=== PATIENT | male | born 1970 | race Caucasian/White ===

== ENCOUNTER 2016-12-10 22:33 | Emergency (ER) | payer SELFPAY ==
[~2016-12-10 22:33] MED LIST: Acetaminophen/Codeine 300-30 MG Tab PO ONE; Ondansetron 4 MG Tab.DIS PO ONE
[2016-12-10] MEDS ORDERED: Ketorolac 30 MG/ML SDV IM ONE (22:47)
[2016-12-10] MEDS ORDERED: Ondansetron 4 MG/2 ML SDV IVPUSH ONE (22:48)
[2016-12-10] MEDS ORDERED: Sodium Chloride 0.9% 1,000 ML IV ONE (22:48)
[2016-12-10] MEDS ORDERED: Sodium Chloride 0.9% 10 ML Syringe FLUSH PRN (22:56)
[2016-12-11] MEDS ORDERED: Sodium Chloride 0.9% 1,000 ML IV ONE (00:01)
[2016-12-11] MEDS ORDERED: Tamsulosin 0.4 MG Cap.ER PO ONE (00:38)
[2016-12-11] MEDS ORDERED: Tamsulosin 0.4 MG Cap.ER ONE (00:38)
--- NOTE | 2016-12-11 01:19 | EDM.PDOC ---
ED HPI GENERAL MEDICAL PROBLEM - General Chief Complaint: Flank Pain Stated Complaint: NAUSEA, LOWER ABD PAIN Time Seen by Provider: 12/10/16 22:50 Source of Information: Reports: Patient History Limitations: Reports: No Limitations - History of Present Illness Onset: Today Onset Date: 12/10/16 Onset Time: 20:30 Duration: Hour(s): (2) Location: Reports: Abdomen, Back, Pelvis (Right flank pain radiating into right testicle.) Quality: Reports: Sharp, Throbbing Severity: Severe (10/10 at first.) Improves with: Reports: None Worsens with: Reports: None Associated Symptoms: Reports: Nausea/Vomiting Right Flank Pain Score (Numeric/FACES): 7 - Related Data Allergies Allergy/AdvReac Type Severity Reaction Status Date / Time No Known Allergies Allergy Verified 12/10/16 22:41 Home Meds: Home Meds NK [No Known Home Meds] 12/10/16 [History] Social & Family History - Family History Family Medical History: Noncontributory - Tobacco Use Smoking Status *Q: Current Every Day Smoker Years of Tobacco use: 30 Packs/Tins Daily: 1 - Caffeine Use Caffeine Use: Reports: Coffee - Recreational Drug Use Recreational Drug Use: Yes Recreational Drug Type: Reports: Marijuana/Hashish Recreational Drug Use Frequency: Not Used In Over 3 Months ED ROS GENERAL - Review of Systems Review Of Systems: See Below Constitutional: Reports: Fever, Chills, Decreased Appetite HEENT: Reports: No Symptoms Respiratory: Reports: No Symptoms Cardiovascular: Reports: No Symptoms Endocrine: Reports: No Symptoms GI/Abdominal: Reports: Abdominal Pain : Reports: Flank Pain Musculoskeletal: Reports: Back Pain Skin: Reports: No Symptoms Neurological: Reports: No Symptoms Psychiatric: Reports: No Symptoms Hematologic/Lymphatic: Reports: No Symptoms Immunologic: Reports: No Symptoms ED EXAM, RENAL/ - Physical Exam Exam: See Below Exam Limited By: No Limitations General Appearance: Alert Eye Exam: Bilateral Eye: EOMI, Normal Fundi, PERRL Ears: Normal External Exam, Normal Canal, Hearing Grossly Normal, Normal TMs Nose: Normal Inspection, Normal Mucosa, No Blood Throat/Mouth: Normal Inspection Head: Atraumatic, Normocephalic Neck: Normal Inspection, Supple, Non-Tender, Full Range of Motion Respiratory/Chest: No Respiratory Distress, Lungs Clear, Normal Breath Sounds, No Accessory Muscle Use, Chest Non-Tender Cardiovascular: Normal Peripheral Pulses, Regular Rate, Rhythm, No Edema, No Gallop, No JVD, No Murmur, No Rub GI/Abdominal: Normal Bowel Sounds, Soft, Non-Tender, No Organomegaly, No Distention, No Abnormal Bruit, No Mass Back Exam: CVA Tenderness (R) Extremities: Normal Inspection, Normal Range of Motion, Non-Tender, Normal Capillary Refill, No Pedal Edema Neurological: Alert, Oriented, CN II-XII Intact, Normal Cognition, Normal Gait, Normal Reflexes, No Motor/Sensory Deficits Psychiatric: Normal Affect, Normal Mood Skin Exam: Warm, Dry, Intact, Normal Color, No Rash Lymphatic: No Adenopathy Course - Vital Signs Text/Narrative:: Uneventful ED course. He got 2 liters of Normal Saline, 30 mg of IV Toradol, 4 mg of IV Zofran and 0.4 mg of Flomax. His labs showed some blood in the Urine and his CT scan of the abdomen and pelvis showed a kidney stone going into the bladder that is 2 mm in diameter. Mild right kidney hydronephrosis but no obstruction. UA showed no infection. He will go home pushing fluids, Tylenol #3 , 1 po q 4 hours and Zofran 4 mg po q 8 hours prn nausea. He will screen his urine and bring the stone in if he finds it. Follow up next week with Dr. Newman to go over kidney stone diagnosis and to determine if urology consultation is needed. Last Recorded V/S: Last Vital Signs Temp 36.5 C 12/10/16 22:41 Pulse 75 12/10/16 22:41 Resp 20 12/10/16 22:41 BP 180/115 H 12/10/16 22:41 Pulse Ox 100 12/10/16 22:41 - Orders/Labs/Meds Orders: Active Orders 24 hr Category Date Time Status Abdomen Pelvis wo Cont [CT] Stat Exams 12/10/16 22:49 Taken Sodium Chloride 0.9% [Saline Flush] Med 12/10/16 22:56 Active 10 ml FLUSH ASDIRECTED PRN Saline Lock Insert [OM.PC] Routine Oth 12/10/16 22:56 Ordered Medication Orders Sodium Chloride (Saline Flush) 10 ml FLUSH ASDIRECTED PRN PRN Reason: Keep Vein Open Last Admin: 12/10/16 22:58 Dose: 10 ml Labs: Laboratory Tests 12/10/16 12/10/16 12/10/16 Range/Units 23:00 23:00 23:45 WBC 9.2 (4.5-12.0) X10-3/uL RBC 4.96 (4.30-5.75) x10(6)uL Hgb 15.9 H (11.5-15.5) g/dL Hct 46.5 (30.0-51.3) % MCV 93.7 (80-96) fL MCH 32.1 (27.7-33.6) pg MCHC 34.3 (32.2-35.4) g/dL RDW 12.5 (11.5-15.5) % Plt Count 329 (125-369) X10(3)uL MPV 7.8 (7.4-10.4) fL Neut % (Auto) 63.8 (46-82) % Lymph % (Auto) 25.3 (13-37) % [place] % (Auto) 8.2 (4-12) % Eos % (Auto) 2 (1.0-5.0) % Baso % (Auto) 1 (0-2) % Neut # (Auto) 5.9 (1.6-8.3) # Lymph # (Auto) 2.3 (0.6-5.0) # [place] # (Auto) 0.8 (0.0-1.3) # Eos # (Auto) 0.2 (0.0-0.8) # Baso # (Auto) 0.0 (0.0-0.2) # Sodium 139 (135-145) mmol/L Potassium 3.5 (3.5-5.3) mmol/L Chloride 107 (100-110) mmol/L Carbon Dioxide 24 (23-29) mmol/L BUN 16 (5-20) mg/dL Creatinine 1.0 (0.6-1.3) mg/dL Est Cr Clr Drug Dosing 99.16 mL/min Estimated GFR (MDRD) > 60 (>60) BUN/Creatinine Ratio 16.0 (9-20) Glucose 159 H (80-116) mg/dL Calcium 8.7 (8.6-10.2) mg/dL Total Bilirubin 0.5 (0.1-1.3) mg/dL AST 24 (5-27) IU/L ALT 27 H (14-26) IU/L Alkaline Phosphatase 66 (56-112) IU/L Total Protein 7.2 (6.0-8.0) g/dL Albumin 4.1 (3.5-5.2) g/dL Globulin 3.1 g/dL Albumin/Globulin Ratio 1.3 Urine Color Yellow (YELLOW) Urine Appearance Clear (CLEAR) Urine pH 6.0 (5.0-6.5) Ur Specific [place] 1.020 (1.010-1.025) Urine Protein Negative (NEGATIVE) mg/dL Urine Glucose (UA) Normal (NEGATIVE) mg/dL Urine Ketones Negative (NEGATIVE) mg/dL Urine Occult Blood Trace (NEGATIVE) Urine Nitrite Negative (NEGATIVE) Urine Bilirubin Negative (NEGATIVE) Urine Urobilinogen Normal (NEGATIVE) mg/dL Ur Leukocyte Esterase Negative (NEGATIVE) Urine RBC 0-5 (0) Urine WBC 0-5 (0) Ur Squamous Epith Cells Rare (NS,R,O) Urine Bacteria Occasional H (NS) Meds: Medications Generic Name Dose Route Start Last Admin Trade Name Freq PRN Reason Stop Dose Admin Sodium Chloride 10 ml 12/10/16 22:56 12/10/16 22:58 Saline Flush FLUSH 10 ml ASDIRECTED PRN Administration Keep Vein Open Discontinued Medications Generic Name Dose Route Start Last Admin Trade Name Freq PRN Reason Stop Dose Admin Sodium Chloride 1,000 mls @ 999 mls/hr 12/10/16 22:48 12/10/16 22:59 Normal Saline IV 12/10/16 23:48 999 mls/hr .BOLUS ONE Administration Sodium Chloride 1,000 mls @ 999 mls/hr 12/11/16 00:01 Normal Saline IV 12/11/16 01:01 .BOLUS ONE Ketorolac Tromethamine 30 mg 12/10/16 22:47 12/10/16 22:55 Toradol IM 12/10/16 22:48 30 mg ONETIME ONE Administration Ondansetron HCl 4 mg 12/10/16 22:48 12/10/16 22:58 Zofran IVPUSH 12/10/16 22:49 4 mg ONETIME ONE Administration Tamsulosin HCl Confirm 12/11/16 00:38 Flomax Administered 12/11/16 00:39 Dose 0.4 mg .ROUTE .STK-MED ONE Tamsulosin HCl 0.4 mg 12/11/16 00:38 12/11/16 00:40 Flomax PO 12/11/16 00:39 0.4 mg ONETIME ONE Administration Departure - Departure Time of Disposition: 01:19 Disposition: Home, Self-Care 01 Condition: Good Clinical Impression: Kidney stone on right side - Discharge Information Referrals: Dung Burrows MD [Primary Care Provider] - - My Orders Last 24 Hours: My Active Orders 12/10/16 22:49 Abdomen Pelvis wo Cont [CT] Stat 12/10/16 22:56 Sodium Chloride 0.9% [Saline Flush] 10 ml FLUSH ASDIRECTED PRN Saline Lock Insert [OM.PC] Routine - Assessment/Plan Last 24 Hours: My Active Orders 12/10/16 22:49 Abdomen Pelvis wo Cont [CT] Stat 12/10/16 22:56 Sodium Chloride 0.9% [Saline Flush] 10 ml FLUSH ASDIRECTED PRN Saline Lock Insert [OM.PC] Routine
== END 2016-12-11 01:25 | disposition home or self-care (01) ==
LOC: FB.ED 22:33
DX: N13.2 Hydronephrosis with renal and ureteral calculous obstruction (principal); F17.210 Nicotine dependence, cigarettes, uncomplicated
CPT/HCPCS: 36415; 74176; 80053; 81001; 85025; 96361; 96372; 96374; 99284; A9270; J1885; J2405; J7040; J7050

== ENCOUNTER 2018-04-19 06:29 | Day surgery (SDC) | payer OTHER ==
[~2018-04-19 06:29] MED LIST changes: -Acetaminophen/Codeine 300-30 MG Tab PO ONE; +Lactated Ringers 1,000 ML IV SCH; -Ondansetron 4 MG Tab.DIS PO ONE; +Sodium Chloride 0.9% 10 ML Syringe FLUSH PRN
[2018-04-19] MEDS ORDERED: Propofol 200 MG/20 ML SDV IV ONE (06:30)
[2018-04-19] MEDS ORDERED: Lidocaine 1% PF 2 ML SDV INJECT ONE (06:30)
[2018-04-19] MEDS ORDERED: Lactated Ringers 1,000 ML IV SCH (06:45)
[2018-04-19] MEDS ORDERED: Sodium Chloride 0.9% 10 ML Syringe FLUSH PRN (06:45)
[2018-04-19] MEDS ORDERED: Simethicone Drops 40 MG/0.6 ML 30 ML Bottle ONE (08:00)
--- NOTE | 2018-04-19 08:26 | PCM.OPNOTE ---
- General Post-Op/Procedure Note Date of Surgery/Procedure: 04/19/18 Operative Procedure(s): c scope with bx Findings: Polyps: ascending x2, transverse, descending, rectum sigmoid diverticulosis Pre Op Diagnosis: bleeding per rectum Post-Op Diagnosis: Polyps: ascending x2, transverse, descending, rectum. sigmoid diverticulosis Anesthesia Technique: MAC Primary Surgeon: Silvano Ornelas Anesthesia Provider: Rashel Garcia Pathology: Polyps: ascending x2, transverse, descending, rectum Complications: None Condition: Good Free Text/Narrative:: see dictation
--- NOTE | 2018-04-19 15:29 | OR ---
DATE OF OPERATION: 04/19/2018 SURGEON: Silvano Ornelas MD PROCEDURE PERFORMED: Screening colonoscopy. PREOPERATIVE DIAGNOSIS: Bleeding per rectum. POSTOPERATIVE DIAGNOSES: Colon polyps, ascending colon x2, transverse colon, descending colon polyp, and rectum. INDICATIONS FOR PROCEDURE: This is a 48-year-old white male who was referred with the above-mentioned issues and also for screening colonoscopy. He was offered and accepted same. DESCRIPTION OF OPERATION: After an excellent IV sedation was administered, digital rectal exam was performed. No marked abnormality was noted. Flexible colonoscope was inserted and advanced to the cecum. The prep was excellent. The following findings were noted. Ascending colon polyp just above the ileocecal valve and one at the distal ascending colon. Multiple biopsies with cold biopsy forceps and sent for permanent. Transverse colon, a small polyp biopsied and sent for permanent. Descending colon, a small polyp biopsied and sent for permanent and rectum small polyp biopsied and sent for permanent. All these polyps were less than 5 mm in diameter. It was also noted that the patient had some sigmoid diverticulosis. Colon was deflated as the scope was removed. The patient tolerated the procedure well, was taken to recovery room in good condition. /[id number] /MODL
== END 2018-04-19 09:27 | disposition home or self-care (01) ==
LOC: FB.SDS 06:29
PROVIDERS: ATTEND Surgery
DX: Z12.11 Encounter for screening for malignant neoplasm of colon (principal); D12.2 Benign neoplasm of ascending colon; D12.3 Benign neoplasm of transverse colon; K63.5 Polyp of colon; K62.1 Rectal polyp; F17.210 Nicotine dependence, cigarettes, uncomplicated; K21.9 Gastro-esophageal reflux disease without esophagitis; K57.30 Diverticulosis of large intestine without perforation or abscess without bleeding; Z80.0 Family history of malignant neoplasm of digestive organs; Z79.899 Other long term (current) drug therapy
CPT/HCPCS: 45380; 88305; A9270; J2001; J2704; J7120

== ENCOUNTER 2018-07-31 19:05 | Emergency (ER) | payer OTHER ==
--- NOTE | 2018-07-31 20:02 | EDM.PDOC ---
ED HPI GENERAL MEDICAL PROBLEM - General Chief Complaint: Genitourinary Problem Stated Complaint: KIDNEY STONE Time Seen by Provider: 07/31/18 19:54 Source of Information: Reports: Patient History Limitations: Reports: No Limitations - History of Present Illness INITIAL COMMENTS - FREE TEXT/NARRATIVE: Patient is a very pleasant 48-year-old male who presents today with concern for right-sided intermittent spasm type pain and cloudy urine that remind him of his previous kidney stone. He has had one episode of stones prior, in November 2017. Put on Flomax at that time and was able to pass them at home. No further symptoms until today. He notes that this afternoon he started noticing the pain , has some mild nausea, broke out in a cold sweat. He points to his right side and somewhat into the right lower quadrant when speaking of the pain. He does not have any other abdominal symptoms, ate breakfast and lunch as normal today. He took 4 ibuprofen earlier this afternoon but didn't seem to help. He has not had any change in bowel habits such as diarrhea or constipation. He does not have any scrotal pain or any abnormal penile discharge. He does not note any back pain. No previous abdominal surgeries, still has appendix and gallbladder. - Related Data Allergies Allergy/AdvReac Type Severity Reaction Status Date / Time No Known Allergies Allergy Verified 07/31/18 19:28 Home Meds: Home Meds Ascorbate Calcium [Vitamin C] 500 mg PO DAILY 04/18/18 [History] Cholecalciferol (Vitamin D3) [Vitamin D3] 2,000 unit PO DAILY 04/18/18 [History] Esomeprazole [NexIUM] 20 mg PO DAILY 04/18/18 [History] Multivitamin [Daily Multiple Vitamin] 1 each PO DAILY 04/18/18 [History] Past Medical History Cardiovascular History: Reports: Hypertension Gastrointestinal History: Reports: GERD Genitourinary History: Reports: Other (See Below) Other Genitourinary History: History of kidney stones. Psychiatric History: Reports: Anxiety, Depression, Panic Attack - Past Surgical History GI Surgical History: Reports: Colonoscopy, Other (See Below) Other GI Surgeries/Procedures: Has routine colonoscopies due to family history of cancer. Social & Family History - Family History Family Medical History: Noncontributory - Tobacco Use Smoking Status *Q: Current Every Day Smoker Years of Tobacco use: 32 Packs/Tins Daily: 1 - Caffeine Use Caffeine Use: Reports: Coffee, Soda - Alcohol Use Days Per Week of Alcohol Use: 5 Number of Drinks Per Day: 5 Total Drinks Per Week: 25 - Recreational Drug Use Recreational Drug Use: No Other Recreational Drug Type: Denies recreational drug use. ED ROS GENERAL - Review of Systems Review Of Systems: ROS reveals no pertinent complaints other than HPI. ED EXAM, GENERAL - Physical Exam Exam: See Below Free Text/Narrative:: Gen.: Alert, very pleasant no acute distress and does not appear significantly uncomfortable. Heart is regular rate and rhythm, lungs are clear throughout with no wheezes or crackles. Abdomen positive bowel sounds, soft nondistended nontender with no rebound or guarding. Minimal right lower quadrant discomfort with palpation, difficult to reproduce. Peripheral pulses +2 and he has no lower extremity edema. Gait is normal. Course - Vital Signs Text/Narrative:: History of renal stones which he states previously the pain began just like this. He is quite nervous with anticipation for what might happen. Urinalysis shows blood, leukocyte esterase, protein and bacteria. Chart reviewed, history of renal stones on last scan showed size 4-5mm. Discussed repeating scan tonight and also checking lab work; he is in agreement. Last Recorded V/S: Last Vital Signs Temp 36.4 C 07/31/18 21:50 Pulse 62 07/31/18 21:50 Resp 16 07/31/18 21:50 BP 170/86 H 07/31/18 21:50 Pulse Ox 100 07/31/18 21:50 - Orders/Labs/Meds Orders: Active Orders 24 hr Category Date Time Status Abdomen Pelvis wo Cont [CT] Stat Exams 07/31/18 20:04 Taken Labs: Laboratory Tests 07/31/18 07/31/18 07/31/18 Range/Units 19:20 20:08 20:08 WBC 10.0 (4.5-12.0) X10-3/uL RBC 4.51 (4.30-5.75) x10(6)uL Hgb 14.6 (13.5-17.8) g/dL Hct 42.8 (30.0-51.3) % MCV 94.9 (80-96) fL MCH 32.4 (27.7-33.6) pg MCHC 34.1 (32.2-35.4) g/dL RDW 12.6 (11.5-15.5) % Plt Count 280 (125-369) X10(3)uL MPV 7.9 (7.4-10.4) fL Neut % (Auto) 66.8 (46-82) % Lymph % (Auto) 23.5 (13-37) % [place] % (Auto) 7.1 (4-12) % Eos % (Auto) 2 (1.0-5.0) % Baso % (Auto) 0 (0-2) % Neut # (Auto) 6.8 (1.6-8.3) # Lymph # (Auto) 2.3 (0.6-5.0) # [place] # (Auto) 0.7 (0.0-1.3) # Eos # (Auto) 0.2 (0.0-0.8) # Baso # (Auto) 0.0 (0.0-0.2) # Sodium 143 (135-145) mmol/L Potassium 3.9 (3.5-5.3) mmol/L Chloride 106 (100-110) mmol/L Carbon Dioxide 28 (21-32) mmol/L BUN 17 (7-18) mg/dL Creatinine 1.0 (0.70-1.30) mg/dL Est Cr Clr Drug Dosing 97.00 mL/min Estimated GFR (MDRD) > 60 (>60) BUN/Creatinine Ratio 17.0 (9-20) Glucose 105 (80-116) mg/dL Calcium 8.7 (8.6-10.2) mg/dL C-Reactive Protein (0.5-0.9) mg/dL Urine Color Brown (YELLOW) Urine Appearance Clear (CLEAR) Urine pH 5.0 (5.0-6.5) Ur Specific [place] 1.025 (1.010-1.025) Urine Protein 30 H (NEGATIVE) mg/dL Urine Glucose (UA) Normal (NORMAL) mg/dL Urine Ketones 15 H (NEGATIVE) mg/dL Urine Occult Blood Large H (NEGATIVE) Urine Nitrite Negative (NEGATIVE) Urine Bilirubin Negative (NEGATIVE) Urine Urobilinogen 1 H (NEGATIVE) mg/dL Ur Leukocyte Esterase Small H (NEGATIVE) Urine RBC >100 H (0-5) Urine WBC 0-5 (0-5) Ur Squamous Epith Cells Few H (NS,R,O) Urine Bacteria Moderate H (NS) 07/31/18 Range/Units 20:08 WBC (4.5-12.0) X10-3/uL RBC (4.30-5.75) x10(6)uL Hgb (13.5-17.8) g/dL Hct (30.0-51.3) % MCV (80-96) fL MCH (27.7-33.6) pg MCHC (32.2-35.4) g/dL RDW (11.5-15.5) % Plt Count (125-369) X10(3)uL MPV (7.4-10.4) fL Neut % (Auto) (46-82) % Lymph % (Auto) (13-37) % [place] % (Auto) (4-12) % Eos % (Auto) (1.0-5.0) % Baso % (Auto) (0-2) % Neut # (Auto) (1.6-8.3) # Lymph # (Auto) (0.6-5.0) # [place] # (Auto) (0.0-1.3) # Eos # (Auto) (0.0-0.8) # Baso # (Auto) (0.0-0.2) # Sodium (135-145) mmol/L Potassium (3.5-5.3) mmol/L Chloride (100-110) mmol/L Carbon Dioxide (21-32) mmol/L BUN (7-18) mg/dL Creatinine (0.70-1.30) mg/dL Est Cr Clr Drug Dosing mL/min Estimated GFR (MDRD) (>60) BUN/Creatinine Ratio (9-20) Glucose (80-116) mg/dL Calcium (8.6-10.2) mg/dL C-Reactive Protein 0.4 L (0.5-0.9) mg/dL Urine Color (YELLOW) Urine Appearance (CLEAR) Urine pH (5.0-6.5) Ur Specific [place] (1.010-1.025) Urine Protein (NEGATIVE) mg/dL Urine Glucose (UA) (NORMAL) mg/dL Urine Ketones (NEGATIVE) mg/dL Urine Occult Blood (NEGATIVE) Urine Nitrite (NEGATIVE) Urine Bilirubin (NEGATIVE) Urine Urobilinogen (NEGATIVE) mg/dL Ur Leukocyte Esterase (NEGATIVE) Urine RBC (0-5) Urine WBC (0-5) Ur Squamous Epith Cells (NS,R,O) Urine Bacteria (NS) - Re-Assessments/Exams Free Text/Narrative Re-Assessment/Exam: 07/31/18 2130 labs reviewed, urinalysis has blood and protein but blood work shows no signs of infection with normal electrolytes and creatinine. non-contrast CT obtained to look for renal stones. CT report shows moderate right hydronephrosis and moderate right hydroureter extending to a 4X5mm calculus located in right distal ureter approximately 1 cm from UVJ. There is a 7mm nonobstructing calculus in the interpolar left kidney with no hydronephrosis. Results reviewed with patient and recommended transfer for urology consult; he requests [facility]. Declines need for any pain medication at this time. BP rechecked - still slightly elevated at 170/100. Free Text/Narrative Re-Assessment/Exam: 07/31/18 22:05 Call placed through [facility], spoke with hospitalist Dr Martinez who accepts the patient for transfer and will consult with urology. Patient requests to drive himself rather than take an ambulance. He has not required any pain medication here and is otherwise hemodynamically stable without signs of infection so I think this would be ok. Will give instructions and discharge from department once receive bed information. Departure - Departure Time of Disposition: 22:37 Disposition: DC/Tfer to Acute Hospital 02 Condition: Fair Clinical Impression: Hydronephrosis with renal and ureteral calculous obstruction - Discharge Information *PRESCRIPTION DRUG MONITORING PROGRAM REVIEWED*: Yes *COPY OF PRESCRIPTION DRUG MONITORING REPORT IN PATIENT JR: No Referrals: Dung Burrows MD [Primary Care Provider] - Forms: ED Department Discharge Additional Instructions: proceed to transfer medical center. When you arrive (at this hour often the only doors open are for the emergency department) tell them you were seen and evaluated in [facility] and have transfer paperwork for admission to [facility]. You should not need to go through the ER in [place]. Dr. Martinez is the accepting physician/hospitalist. Your bed number is: U 14 take very good care - My Orders Last 24 Hours: My Active Orders 07/31/18 20:04 Abdomen Pelvis wo Cont [CT] Stat - Assessment/Plan Last 24 Hours: My Active Orders 07/31/18 20:04 Abdomen Pelvis wo Cont [CT] Stat
== END 2018-07-31 22:35 ==
LOC: FB.ED 19:05
DX: N13.2 Hydronephrosis with renal and ureteral calculous obstruction (principal); I10 Essential (primary) hypertension; K21.9 Gastro-esophageal reflux disease without esophagitis; F41.9 Anxiety disorder, unspecified; F32.9 Major depressive disorder, single episode, unspecified; Z79.899 Other long term (current) drug therapy; F17.210 Nicotine dependence, cigarettes, uncomplicated
CPT/HCPCS: 36415; 74176; 80048; 81001; 85025; 86140; 99285-25

== ENCOUNTER 2023-05-30 06:43 | Day surgery (SDC) | payer OTHER ==
[2023-05-30] MEDS ORDERED: Midazolam 1 MG/ML 2 ML SDV IV ONE (06:44)
[2023-05-30] MEDS ORDERED: Citric Acid/Sodium Citrate Solution 30 ML Cup PO ONE (06:44)
[2023-05-30] MEDS ORDERED: Propofol 200 MG/20 ML SDV IV ONE (06:44)
[2023-05-30] MEDS ORDERED: Lidocaine 2% 100 MG/5 ML Syringe IVPUSH ONE (06:44)
[2023-05-30] MEDS ORDERED: Sodium Chloride 0.9% 10 ML Syringe FLUSH PRN (07:00)
[2023-05-30] MEDS: Lactated Ringers 1,000 ML IV SCH (07:33)
[2023-05-30] MEDS: Simethicone Drops 40 MG/0.6 ML 30 ML Bottle PO ONE (07:45)
== END 2023-05-30 09:24 | disposition home or self-care (01) ==
LOC: FB.SDS 06:43
PROVIDERS: ATTEND Surgery
DX: D12.6 Benign neoplasm of colon, unspecified (principal); K57.30 Diverticulosis of large intestine without perforation or abscess without bleeding; K21.9 Gastro-esophageal reflux disease without esophagitis; F17.210 Nicotine dependence, cigarettes, uncomplicated; Z86.010 Personal history of colon polyps; Z80.0 Family history of malignant neoplasm of digestive organs; Z79.899 Other long term (current) drug therapy
CPT/HCPCS: 45384; 45385; 88305; A9270; J2250; J2704; J7120

== ENCOUNTER 2024-06-21 06:55 | Day surgery (SDC) | payer OTHER ==
[2024-06-21] MEDS ORDERED: Midazolam 1 MG/ML 2 ML SDV IV ONE (06:56)
[2024-06-21] MEDS ORDERED: Ketamine 500 mg/10 ML MDV IV ONE (06:56)
[2024-06-21] MEDS ORDERED: Propofol 200 MG/20 ML SDV IV ONE (06:56)
[2024-06-21] MEDS ORDERED: Lidocaine 2% 100 MG/5 ML Syringe IVPUSH ONE (06:56)
[2024-06-21] MEDS ORDERED: Sodium Chloride 0.9% 10 ML Syringe FLUSH PRN (07:45)
[2024-06-21] MEDS: Lactated Ringers 1,000 ML IV SCH (07:52)
== END 2024-06-21 10:40 | disposition home or self-care (01) ==
LOC: FB.SDS 06:55
PROVIDERS: ATTEND Surgery
DX: K29.50 Unspecified chronic gastritis without bleeding (principal); K22.70 Barrett's esophagus without dysplasia; K44.9 Diaphragmatic hernia without obstruction or gangrene; K21.9 Gastro-esophageal reflux disease without esophagitis; F17.210 Nicotine dependence, cigarettes, uncomplicated
CPT/HCPCS: 43239; 88305; 88342; J2250; J2704; J3490; J7120; 00731

== ENCOUNTER 2024-07-19 06:36 | Day surgery (SDC) | payer OTHER ==
[2024-07-19] MEDS ORDERED: Ketamine 500 mg/10 ML MDV IV ONE (06:37)
[2024-07-19] MEDS ORDERED: Propofol 200 MG/20 ML SDV IV ONE (06:37)
[2024-07-19] MEDS ORDERED: Midazolam 1 MG/ML 2 ML SDV IV ONE (06:37)
[2024-07-19] MEDS ORDERED: Citric Acid/Sodium Citrate Solution 30 ML Cup PO ONE (06:37)
[2024-07-19] MEDS ORDERED: Lidocaine 2% 100 MG/5 ML Syringe IVPUSH ONE (06:37)
[2024-07-19] MEDS ORDERED: Sodium Chloride 0.9% 10 ML Syringe FLUSH PRN (07:00)
[2024-07-19] MEDS: Lactated Ringers 1,000 ML IV SCH (07:28)
[2024-07-19] MEDS: Simethicone Drops 40 MG/0.6 ML 30 ML Bottle ONE (07:53)
== END 2024-07-19 09:32 | disposition home or self-care (01) ==
LOC: FB.SDS 06:36
PROVIDERS: ATTEND Surgery
DX: Z12.11 Encounter for screening for malignant neoplasm of colon (principal); K63.5 Polyp of colon; K57.30 Diverticulosis of large intestine without perforation or abscess without bleeding; Z80.0 Family history of malignant neoplasm of digestive organs; K22.70 Barrett's esophagus without dysplasia; K21.9 Gastro-esophageal reflux disease without esophagitis; F17.210 Nicotine dependence, cigarettes, uncomplicated; Z79.899 Other long term (current) drug therapy
CPT/HCPCS: 00811; 45384; 88305; A9270; J2250; J2704; J3490; J7120